=== PATIENT | female | born 1965 | race Caucasian/White ===

== ENCOUNTER → 2016-10-24 | Outpatient (CLI) | payer BC ==
[~2016-10-24] MED LIST: ACET-2321 PO; BENA20TA3 PO; HYDR-3989 PO; MULT-1175 PO; ONDA4TAB4 PO; P-EP-93 PO
[2016-10-24 10:50] LABS: BASOPHILS # (AUTO) 0.1 T/MM3 (0-0.2); BASOPHILS % (AUTO) 1.1 % (0-2); EOSINOPHILS # (AUTO) 0.1 T/MM3 (0-0.5); EOSINOPHILS % (AUTO) 1.9 % (0-4); HCT - HEMATOCRIT 39.7 % (36-46); IMMATURE GRANULOCYTE # (AUTO) 0.01 T/MM3 (0.00-0.03); IMMATURE GRANULOCYTE % (AUTO) 0.2 % (0.0-0.5); LYMPHOCYTES # (AUTO) 1.6 T/MM3 (1-4.8); LYMPHOCYTES % (AUTO) 34.9 % (23-45); MEAN CORPUSCULAR HGB 28.1 UUG (26-34); MEAN CORPUSCULAR HGB CONC(MCHC 32.7 GM/DL (31-37); MEAN CORPUSCULAR VOLUME 85.7 UM3 (80-100); MEAN PLATELET VOLUME 10.9 UM3 (9.4-12.4); MONOCYTES # (AUTO) 0.3 T/MM3 (0-0.8); MONOCYTES % (AUTO) 6.8 % (0-9.0); NEUTROPHILS #(AUTO)-ABSOLUTE 2.6 T/MM3 (1.8-7.7); NEUTROPHILS % (AUTO) 55.1 % (33-66); RED BLOOD COUNT 4.63 M/MM3 (4.00-5.20); WBC - WHITE BLOOD COUNT 4.7 T/MM3 (4.5-11.0)
[2016-10-24 10:59] LABS: ANION GAP 12 MEQ/L (5-15); BUN/CREATININE RATIO 16 RATIO (6-26); CALCIUM 9.7 MG/DL (8.4-10.2); CHLORIDE 106 MEQ/L (98-107); CO2 - CARBON DIOXIDE 26 MEQ/L (22-30); CREATININE 0.8 MG/DL (0.7-1.2); GLOMERULAR FILTRATION RATE 75; GLUCOSE 90 MG/DL (65-110); POTASSIUM 3.9 MEQ/L (3.6-5); SODIUM 144 MEQ/L (134-144)
--- NOTE | 2016-10-24 11:16 | DI ---
EXAM: CHEST, PA LATERAL COMPARISON: None available. HISTORY: ITS.REASON: Z01.89 PRE-OP EXAM . FINDINGS: The cardiomediastinal silhouette is within limits of normal. The pulmonary vascularity appears unremarkable. The lungs are clear. There is no evidence for pleural effusion. There is no evidence for a pneumothorax. There may be old healed fracture deformities of multiple anterolateral right lower ribs. Endplate sclerosis and spurring is seen of the thoracic spine. IMPRESSION: No acute process identified. LOCATION OF DICTATION: [facility] [place] .
== END ==
LOC: IMA 10:29
PROVIDERS: ATTEND Orthopaedic Surgery
DX: Z01.89 Encounter for other specified special examinations (principal); Z01.810 Encounter for preprocedural cardiovascular examination; Z01.812 Encounter for preprocedural laboratory examination; Z01.811 Encounter for preprocedural respiratory examination
CPT/HCPCS: 36415; 80048; 85025; 93005

== ENCOUNTER 2016-10-28 10:43 | Day surgery (SDC) | payer BC ==
[2016-10-28] VITALS (25 sets, daily range): BP systolic 114–197; BP diastolic 60–93; PULSE 66–83; RESP 10–43; TEMP 97–98.7; O2SAT 90–99; Ht 163.8 cm; Wt 79.2 kg
[~2016-10-28] VITALS: Ht 163.8 cm; Wt 79.2 kg
[~2016-10-28 10:43] MED LIST changes: +CEFAZOLIN 1 GRAM INJECTION IV ONE; -HYDR-3989 PO; +LIDOCAINE 1% (10mg/ml) 2ml SDV INJ ONE; +LR 1,000 ML IV SCH; -ONDA4TAB4 PO; -P-EP-93 PO
--- OUTSIDE RECORDS SUMMARY | 2016-10-28 10:47 | XMS REPORT | Continuity of Care Document ---
Author Author [facility] Organization [facility] Address Unknown Phone Unavailable Care Team Providers Care Coil Winder Repair Name Role Phone DAPHNE VARGHESE Primary Care Physician [phone] Insurance Providers Guarantor Becky Logan Address [address] [facility] [address] Email [email or web address] [employer] Other Policy Number [id number] Subscriber's Name Becky Logan Relationship 18 Self Group Number [id number] Chief Complaint and Reason for Visit Chief Complaint Lower Extremity Problem Reason for Visit [id number] Problems Active Problems Medical Problem Onset Date Status Reducible inguinal hernia Unknown Acute Past Problems Medical Problem Onset Date Injury of ankle, right Unknown Medications Current Home Medications Medication Dose Units Route Directions Days Qty Instructions Start Date Acetaminophen (Tylenol) 325 Mg Tablet 1 Tab Oral Every 4 Hours Prn 30 Tablet 10/23/16 Benazepril Hcl 20 Mg Tablet 1 Tab Oral Twice A Day 10/23/16 Multivitamin (Multi-Vitamin Daily) 1 Each Tablet 1 Tab Oral Daily 01/18/14 Social History Social History Problem Response Recorded Date/Time Onset Date Status Hx Substance Use No 01/18/2014 6:00pm Not Applicable Not Applicable Hx Alcohol Use Y 3-4X MO 01/18/2014 6:00pm Not Applicable Not Applicable Has the pt used tobacco in the last 12 months No 01/18/2014 6:00pm Not Applicable Not Applicable Hospital Discharge Instructions No hospital discharge instructions. Plan of Care Discharge Date 10/23/16 12:04pm Disposition 01 DISCHARGED HOME, SELF-CARE Condition at Discharge Stable Instructions/Education Provided Ankle Sprain (ED) Crutch Instructions (DC) RICE Therapy (ED) Forms Provided [facility] Work/School Permit Prescriptions See Medication Section Referrals DAPHNE VARGHESE Address: [address] [address] Additional Instructions/Education Follow with Daphne Varghese at [facility] today at 2:45 PM, for xray and visit. In ankle splint and crutches with no weight bearing for now. Possible referral to ortho clinic; they are unable to see her today. Ibuprofen for pain. Functional Status No functional status results. Allergies, Adverse Reactions, Alerts No known allergies. Immunizations Query Response on File Recorded Date/Time Hx Influenza Vaccination Y YRS AGO 01/18/14 6:00pm Hx Pneumococcal Vaccination No 01/18/14 6:00pm Hx Influenza Vaccination Y YRS AGO 01/18/14 6:00pm Influenza Vaccine Hx UNKNOWN 10/23/16 11:32am Vital Signs Acute Vital Signs Vital Response Date/Time Temperature (Fahrenheit) 98.1 deg F (96.8 - 99.1) 10/23/2016 11:20am Temperature (Calculated Celsius) 36.58736 degrees C (36.0 - 37.3) 10/23/2016 11:20am Pulse Rate (adult) 73 bpm (60 - 100) 10/23/2016 11:20am Respiratory Rate 16 breaths/min (10 - 20) 10/23/2016 11:20am O2 Sat by Pulse Oximetry 98 % (90 - 100) 10/23/2016 11:20am Blood Pressure 119/85 mm Hg 10/23/2016 11:20am Height (Inches) 64.50 inches 10/23/2016 11:20am Weight (Kilograms) 80.700 kg 10/23/2016 11:20am Body Mass Index (BMI) 30.0 10/23/2016 11:20am Results No known relevant diagnostic tests, laboratory data and/or discharge summary. Procedures No known history of procedures. Encounters Encounter Location Arrival/Admit Date Discharge/Depart Date Attending Provider Departed Emergency Room [facility] 10/23/16 11:18am 10/23/16 12: 04pm RAJIV ALONZO APRN Recent Diagnosis
--- OUTSIDE RECORDS SUMMARY | 2016-10-28 10:48 | XMS REPORT | Continuity of Care Document ---
Author Author [facility] Organization [facility] Address Unknown Phone Unavailable Support Name Relationship Address Phone YRN MANNING MD Caregiver Omar BEARD [address] [place] [address] DINO MATA MD Caregiver [facility] [address] [place] [address] [place] [phone] TONY ANDRADE Next Of Kin Unknown [phone] Insurance Providers Payer Name Policy Number Subscriber Name Relationship [employer] Other [id number] Becky Logan 16 Self Advance Directives Directive Response Recorded Date/Time Ordered Resuscitation Status Full Code 01/18/14 6:16pm Problems Medical Problems Problem Onset Date Status Reducible inguinal hernia Unknown Active Medications Medication Dose Route Sig Days/Qty Instructions Order Date Discontinued Date Status Venlafaxine HCl 75 Mg PO TWICE A DAY 01/18/14 Active Naproxen 500 Mg PO TWICE A DAY 01/18/14 Active Loratadine 1 Tab PO BEFORE BREAKFAST Once daily before breakfast Active Multivitamin 1 Tab PO DAILY 01/18/14 Active Hydrocodone/Acetaminophen 1-2 Tab PO EVERY 4-6 HOURS PRN PAIN 30 Qty Active Social History Social History Problem Response Recorded Date/Time Smoking Status Never smoker 01/18/2014 6:00pm Chewing Tobacco Status No 01/18/2014 6:00pm Hx Substance Use No 01/18/2014 6:00pm Hx Alcohol Use Y 3-4X MO 01/18/2014 6:00pm Has the pt used tobacco in the last 12 months No 01/18/2014 6:00pm Hospital Discharge Instructions No hospital discharge instructions. Plan of Care No plan of care. Functional Status No functional status results. Allergies, Adverse Reactions, Alerts Allergen Type Severity Reaction Status Last Updated No Known Allergies Active 01/18/14 Immunizations Name Given Type Hx Influenza Vaccination Y YRS AGO Historical Hx Pneumococcal Vaccination No Historical Hx Influenza Vaccination Y YRS AGO Historical Vital Signs Acute Vital Signs Vital Response Date/Time Temperature (Fahrenheit) 97.6 deg F (96.8 - 99.1) Temperature (Calculated Celsius) 36.45930 degrees C (36.0 - 37.3) Temperature Source Temporal Pulse Rate (adult) 68 bpm (60 - 100) Respiratory Rate 16 breaths/min (10 - 20) O2 Sat by Pulse Oximetry 96 % (90 - 100) Blood Pressure 124/74 mm Hg Blood Pressure Source Automatic Cuff Height 5 ft 4.5 in Weight 171 lb Body Mass Index 28.0 kg/m^2 Results Test Source Date Result Interp. Ref. Range Comments Immature Granulocyte # (Auto) January 19, 2014 8:37am 0.01 T/MM3 N 0.00- 0.03 COMMENT SCU WILL CALL Basophils # (Auto) January 19, 2014 8:37am 0.1 T/MM3 N 0-0.2 COMMENT SCU WILL CALL Eosinophils # (Auto) January 19, 2014 8:37am 0.1 T/MM3 N 0-0.5 COMMENT SCU WILL CALL Monocytes # (Auto) January 19, 2014 8:37am 0.4 T/MM3 N 0-0.8 COMMENT SCU WILL CALL Lymphocytes # (Auto) January 19, 2014 8:37am 1.7 T/MM3 N 1-4.8 COMMENT SCU WILL CALL Neutrophils # (Auto) January 19, 2014 8:37am 2.1 T/MM3 N 1.8-7.7 COMMENT SCU WILL CALL Immature Granulocyte % (Auto) January 19, 2014 8:37am 0.2 % N 0.0-0.5 COMMENT SCU WILL CALL Basophils (%) (Auto) January 19, 2014 8:37am 1.6 % N 0-2 COMMENT SCU WILL CALL Eosinophils (%) (Auto) January 19, 2014 8:37am 1.8 % N 0-4 COMMENT SCU WILL CALL Monocytes (%) (Auto) January 19, 2014 8:37am 9.5 % H 0-9.0 COMMENT SCU WILL CALL Lymphocytes (%) (Auto) January 19, 2014 8:37am 39.3 % N 23-45 COMMENT SCU WILL CALL Neutrophils (%) (Auto) January 19, 2014 8:37am 47.6 % N 33-66 COMMENT SCU WILL CALL Mean Platelet Volume January 19, 2014 8:37am 10.5 UM3 N 9.4-12.4 COMMENT SCU WILL CALL Platelet Count January 19, 2014 8:37am 246 T/MM3 N 130-400 COMMENT SCU WILL CALL RDW Standard Deviation January 19, 2014 8:37am 38.8 FL N 36.9-50.2 COMMENT SCU WILL CALL Mean Corpuscular Hemoglobin Concent January 19, 2014 8:37am 33.3 GM/DL N 31-37 COMMENT SCU WILL CALL Mean Corpuscular Hemoglobin January 19, 2014 8:37am 28.3 UUG N 26-34 COMMENT SCU WILL CALL Mean Corpuscular Volume January 19, 2014 8:37am 85.2 UM3 N 80-100 COMMENT SCU WILL CALL Hematocrit January 19, 2014 8:37am 40.3 % N 36-46 COMMENT SCU WILL CALL Hemoglobin January 19, 2014 8:37am 13.4 GM/DL N 12-16 COMMENT SCU WILL CALL Red Blood Count January 19, 2014 8:37am 4.73 M/MM3 N 4.00-5.20 COMMENT SCU WILL CALL White Blood Count January 19, 2014 8:37am 4.4 T/MM3 L 4.5-11.0 COMMENT SCU WILL CALL Procedures Procedure Status Date Provider(s) Inguinal hernia repair completed 01/19/14 DINO MATA MD
[2016-10-28] MEDS ORDERED: BUPIVACAINE 0.25% (2.5mg/ml) INJ 30ml SDV ONE (11:19)
[2016-10-28] MEDS ORDERED: P-EP-93 PO (11:39)
--- NOTE | 2016-10-28 11:48 | ANESPREOP ---
Anesthesia Record Date and Time DATE: 10/28/16 TIME: 11:46 Pre-Op Diagnosis Fx Right Ankle Proposed Surgical Procedure RT. LATERAL MALLEOLUS ORIF NPO since: [place] Allergies: Coded Allergies: No Known Allergies (Unverified , 10/25/16) Ht/Wt/BMI Height: 5 ' 4.50 " Weight: 79.200 kg BMI: 29.5 kg/m2 Medications Inpatient Medications Current Medications Medications (Trade) Dose Ordered Sig/Bony Start Time Stop Time Status Last Admin Dose Admin Lactated Ringer's (Lactated Ringers) 1,000 ml @ 50 mls/hr Q20H 10/28/16 07:00 10/28/16 11:44 50 MLS/HR Acetaminophen (Tylenol) 325 Mg Tablet, 1 TAB PO Q4HPRN, (Reported) Last Taken: on 10/27/162099 Benazepril HCl (Benazepril HCl) 20 Mg Tablet, 1 TAB PO DAILY, (Reported) Last Taken: on 10/27/162099 Loratadine/Pseudoephedrine (Claritin-D 12 Hour Tablet) 1 Each Tab.er.12h, 1 TAB PO PRN, (Reported) Last Taken: on 10/26/16 Multivitamin (Multi-Vitamin Daily) 1 Each Tablet, 1 TAB PO DAILY, (Reported) Last Taken: on 10/22/16 Currently on Beta Vianca: No Medical/Surgical History Anesthesia PMH: Reports: *Hypertension (ON MEDS), Anxiety, Arthritis (IN GENERAL), Deep Vein Thrombosis (hx of), Depression, Hiatal Hernia, Pneumonia ( years ago), Reflux, Denies: *Angina, *Diabetes, *Dyspnea, *WA, Anesthesia Reactions (NO AIRWAY ISSUES), Asthma, Blood Transfusion Reac, CHF, COPD, CVA/ Stroke/TIA, Cancer, Clotting Problems, Glaucoma, Hepatitis, Malignant Hyperthermia, Renal Disease, Seizures, Sleep Apnea, Thyroid Disease, Tuberculosis Smoking Status: Never smoker Use Chewing Tobacco?: No Second Hand Exposure: No Substance Use Type: does not use Alcohol Intake: a few times a month HX of Last Menstrual Period: HYST. Past Surgical History Orthopedic Surgeries: No Abdominal Surgeries: Yes - RIGHT INGUINAL HERNIA Genitourinary Surgeries: No Cardiac Surgeries: No Endocrine Surgeries: No Reproductive Surgeries: Yes - C SECTION X3, TUBAL LIGATION, CHIRAG BSO,LEAP Neurological Surgeries: No Ear Surgeries: No Nose Surgeries: No Throat Surgeries: Yes - TONSILLECTOMY Other Surgeries: Yes - COLONOSCOPY Anesthesia Adverse Reactions: FOUND none Family Hx of Anesthesia Advers: none Hx of Motion Sickness: No Pertinent Findings EKG Rhythm: Sinus Rhythm Physical Exam Respiratory: Bilat breath sounds equal, Lungs clear Cardiovascular: FOUND Regular rate, rhythm, FOUND No murmur Airway Assessment TMD: 3 Fingerbreadths Neck Extension: Good Teeth: Upper Dentures, Lower Dentures ASA: 2 Plan Anesthesia Plan: LMA Peripheral Nerve Block: Popliteal - RT Discussion Discussed risks/options/alternatives of anesthesia and questions answered. Patient consents. Nursing pain assessment noted. Attestation Statement Prior to the delivery of any anesthetic medication, I examined the patient, developed the plan, obtained the patient's consent and discussed the risk and benefits of the procedure with the patient/guardian. FABIOLA LINDER CRNA October 28, 2016 11:48
[2016-10-28] MEDS ORDERED: MIDAZOLAM 2mg/2ml INJECTION IV ONE (12:00)
[2016-10-28] MEDS ORDERED: PROPOFOL 200mg 20 ML IV ONE (12:29)
[2016-10-28] MEDS ORDERED: FENTANYL 250mcg/5ml INJECTION ONE (12:29)
[2016-10-28] MEDS ORDERED: LIDOCAINE (2%) 100 MG/5 ML PF SYRINGE IV ONE (12:29)
[2016-10-28] MEDS ORDERED: KETOROLAC 30mg/ml INJECTION ONE (13:40)
--- NOTE | 2016-10-28 13:54 | ANESPD ---
Peripheral Nerve Blockade Physician: Gustavo Burr MD Date: 10/28/16 Surgical Procedure: ORIF Right Ankle Discussion Discussed risks/options/alternatives of anesthesia and questions answered. Patient consents. Nursing pain assessment noted. Block Start: 12:00 Block Stop: 12:20 Block Employed: Popliteal Indication: post-operative pain Approach: right side confirmed Position: RLD Patient: Consent, risks/benefits discussed, Informed, post block act. discussed Monitors: EKG, SpO2, NIBP IV Sedation: Yes Sedation: sedate w/meaningful contact Midazolam (mg): 2 Decadron (mg): 8 Initial Vital Signs First Documented Vital Signs Date Time Temp Pulse Resp B/P Pulse Ox O2 Delivery O2 Flow Rate FiO2 10/28/16 11:56 18 Post Vital Signs Vital Signs Date Time Temp Pulse Resp B/P Pulse Ox O2 Delivery O2 Flow Rate FiO2 10/28/16 11:56 18 Initial Pain Score: 0 Post Block Score: 0 Prep: chlorhexadine/ETOH Ultrasound Used?: Yes Nerve Simulator Muscle Response: Yes Parathesia/Pain: with needle placement (transient), with injection Injectate Ropivacaine (%): 0.5 Ropivacaine (mL): 30 Was Epi 1:200,000 Used?: No Injection Injection made incrementally with constant monitoring and aspiration every [] ml. FABIOLA LINDER CRNA October 28, 2016 13:54
[2016-10-28] MEDS ORDERED: ONDANSETRON 4mg/2ml INJECTION IV PRN (14:00)
[2016-10-28] MEDS ORDERED: HYDR-3989 PO (14:05)
[2016-10-28] MEDS ORDERED: ONDA4TAB4 PO (14:05)
--- NOTE | 2016-10-28 14:07 | PDPROCED ---
Immediate Operative Note DATE: 10/28/16 TIME: 14:06 Preop Diagnosis: RIGHT LATERAL MALLEOULUS FX Postop Diagnosis: Right lateral malleolus fracture, Heath C Surgical Procedures: Other (ORIF right lateral malleolus) Surgeon: Aminah Smooth And Burr Worker Composites: ALICE Gutierrez Anesthesia: General Complications: none Estimated Blood Loss see anesthesia MALISSA ENRIQUEZ October 28, 2016 14:07
[2016-10-28] MEDS ORDERED: HYDROMORPHONE 2mg/ml INJECTION IV PRN (14:15)
[2016-10-28] MEDS: HYDROMORPHONE 2mg/ml INJECTION IV PRN ×3 (14:18→14:43)
[2016-10-28] MEDS ORDERED: HYDROCODONE/APAP 5 mg/325 mg TABLET PO ONE (15:45)
--- NOTE | 2016-10-28 16:44 | ANESPO ---
Post-Op Note Date 10/28/16 Time: 16:43 Status Pt Participated in Evaluation: Pt participated in person Vital Signs Date Time Temp Pulse Resp B/P Pulse Ox O2 Delivery O2 Flow Rate FiO2 10/28/16 15:50 79 18 160/86 96 Room Air 10/28/16 15:00 97.4 Respiratory Function: Airway patent, Regular respirations Cardiovascular Function: Regular pulse Mental Status: Alert/oriented Pain Level Intensity: 1 Unable to Assess Pain Due To: Pt Sleeping Hydration: Taking po fluids Complications during Recovery None apparent Follow-Up Instructions Instructions Per Surgeon DALLAS GUZMAN CRNA October 28, 2016 16:44
--- NOTE | 2016-10-28 21:07 | OPNOTEF ---
DATE OF OPERATION 10/28/2016 PREOPERATIVE DIAGNOSIS Closed displaced lateral malleolus fracture. POSTOPERATIVE DIAGNOSIS Closed displaced lateral malleolus fracture. PROCEDURE Open reduction internal fixation lateral malleolus fracture. SURGEON Gustavo Burr MD MECH[employer]IC [employer]INE ENGINE Greg Esquivel PA-C ANESTHESIA General with regional nerve block. FLUIDS Please refer to Anesthesia chart EBL Minimal. TOURNIQUET Approximately 1 hour at 300 mmHg. COMPLICATIONS None. CONDITION Stable in recovery room. IMPLANTS Jeevan lateral malleolus locking plate and screws. DESCRIPTION OF PROCEDURE The patient was identified in the preoperative holding area. The operative extremity was identified and appropriately marked. Risks, benefits, alternatives and potential complications were discussed and informed consent was obtained. The patient was taken to the operating theatre and placed supine on the operating table. Regional block had been placed in preop holding. Appropriate cardiorespiratory monitors were applied. General anesthesia was induced. A tourniquet was applied to the right thigh though not yet inflated. A bump was placed behind the right buttocks. The right lower extremity was sterilely prepped and draped in the usual fashion. Surgical time-out was performed, confirmed with myself, the appeals officer and circulating nurse. Preoperative antibiotics were given. The leg was exsanguinated with an Esmarch and the tourniquet inflated. Standard lateral incision was created centered over the lateral malleolus from the tip of the malleolus extending proximally. Careful blunt dissection was carried through the subcutaneous tissues. The superficial peroneal nerve was not identified within the wound. Full-thickness periosteal flaps were developed over the distal portion of the malleolus and to the fracture site. The fracture site was examined. This was an oblique fracture. There was impaction and comminution at the anterior aspect of the fracture. The posterior aspect showed some fracture comminution as well. The comminuted fragments were carefully pulled from the fracture site while maintaining soft tissue connections as periosteum was elevated to visualize the fracture completely. The fracture was distracted from its impacted anterior portion and copiously irrigated. Any fibrous tissue was removed with curettes. Reduction was then performed and provisionally held with [id number] reduction clamps. This was confirmed with fluoroscopy. Interfragmentary screw was then placed from anterior and proximal to distal and posterior, providing interfragmentary compression across this oblique fracture. [place] were then removed. Because of the short segment distally it was elected to use a locking plate. The shortest locking plate from [place] was placed against the lateral malleolus. Two proximal cortical screws were then placed followed by the three distal locking screws. We could not get good capture on the most distal locking screws so this was exchanged for a standard [place] bone screw. The remaining proximal holes were then filled using standard AO technique as well, providing good neutralization fixation of this lateral malleolus fracture. Fluoroscopy was utilized to confirm final position of the fracture and hardware. Stress mortise view showed stable mortise and syndesmosis. The wound was copiously irrigated. #1 Vicryl was used to close the periosteum and fascial layer over the plate. This was followed by a standard layered skin closure. Sterile dressings were applied followed by a well-padded, well-molded posterior slab and sugar-tong short-leg splint. This was overwrapped with Rigoberto bandage. Tourniquet was deflated. The patient was awakened from anesthesia and taken to the recovery room in stable and satisfactory condition. GIUSEPPE
--- NOTE | 2016-10-29 08:28 | DI ---
Indication: ITS.REASON: RT ANKLE ORIF PROCEDURE: RF ANKLE RIGHT 2 VIEW: Encounter: Initial Comparison: None Findings: Four fluoroscopic spot images are submitted for interpretation. Images show open reduction and internal fixation of a distal fibular fracture with placement of a lateral side plate and multiple screws. Impression: Fluoroscopy as above. Fluoroscopy time is 13.1 seconds. Fluoroscopy dose is 57.1 mRad. .
== END 2016-10-28 16:50 | disposition home or self-care (01) ==
LOC: NSC 10:43
PROVIDERS: ATTEND Orthopaedic Surgery
DX: S82.61XA Displaced fracture of lateral malleolus of right fibula, initial encounter for closed fracture (principal); X50.1XXA Overexertion from prolonged static or awkward postures, initial encounter; Y93.01 Activity, walking, marching and hiking; Y92.9 Unspecified place or not applicable; Y99.8 Other external cause status
CPT/HCPCS: 27792; 64445; 73600; 76000; 76942; A6222; C1713; J0690; J1170; J1885; J2250; J2405; J2704; J3010; J7120